=== PATIENT | female | born 1970 | race Caucasian/White ===

== ENCOUNTER 2019-02-19 06:17 | Day surgery (SDC) | payer OTHER ==
[~2019-02-19] VITALS: Ht 170.2 cm; Wt 91.6 kg
[2019-02-19] MEDS ORDERED: fentaNYL 0.05 MG/ML VIAL ONE (07:37)
[2019-02-19] MEDS ORDERED: LIDOCAINE 2% 100 MG/5 ML UJET TP ONE (07:37)
[2019-02-19] MEDS ORDERED: fentaNYL 0.05 MG/ML VIAL IVP ONE (08:25)
== END 2019-02-19 08:45 | disposition home or self-care (01) ==
LOC: MMU 06:17 → MOR 06:17
PROVIDERS: ATTEND Internal Medicine Gastroenterology
DX: Z12.11 Encounter for screening for malignant neoplasm of colon (principal); D12.5 Benign neoplasm of sigmoid colon; Z80.0 Family history of malignant neoplasm of digestive organs; Z90.49 Acquired absence of other specified parts of digestive tract; E66.9 Obesity, unspecified; Z79.899 Other long term (current) drug therapy; Z98.890 Other specified postprocedural states; Z68.33 Body mass index [BMI] 33.0-33.9, adult
CPT/HCPCS: 45380; 81025; J3010